=== PATIENT | female | born 1945 | race Caucasian/White ===

== ENCOUNTER → 2024-12-27 | Outpatient (CLI) | payer MEDICARE ==
--- NOTE | 2024-12-27 10:27 | XR ---
EXAMINATION TYPE: XR foot complete LT DATE OF EXAM: 12/27/2024 10:22 AM INDICATION: Patient age:Female; 79 years old; Reason for study: [id number] INJURY LT FOOT; YCH. pain COMPARISON: None TECHNIQUE: The left foot was examined in the AP, oblique, and lateral projections. FINDINGS: No evidence of any acute osseous pathology. No evidence of soft tissue swelling. No osseous erosions . Bunion deformity of the first digit. Degenerative changes of the first MTP joint with joint space n arrowing and sclerosis. No radiopaque foreign body. Tiny plantar calcaneal enthesophyte. IMPRESSION: 1. No evidence of acute fracture. 2. Moderate bunion deformity of the first digit with mild degenerative changes of the first MTP rich person [facility], , 12/27/2024 10:24 AM
== END | disposition home or self-care (01) ==
LOC: RADXRYALE 09:52
PROVIDERS: ATTEND Internal Medicine
DX: S99.922A Unspecified injury of left foot, initial encounter (principal); M21.612 Bunion of left foot; M19.072 Primary osteoarthritis, left ankle and foot